=== PATIENT | male | born 1960 | race Caucasian/White ===

== ENCOUNTER 2021-01-21 21:38 | Emergency (ER) | payer MEDICARE, MEDICAID ==
[~2021-01-21] VITALS: Ht 193 cm; Wt 90.9 kg
[2021-01-21 21:40] VITALS: BP 184/134
[2021-01-21] MEDS ORDERED: DOXYCYCLINE 100MG CAPSULE PO STA (22:26)
[2021-01-21] MEDS ORDERED: cephalexin 250mg capsule PO ONE (22:30)
[2021-01-21] MEDS ORDERED: TETanus/Pertussis (Acell)/Diphther VAC/PF (Tdap-Adult) 0.5ml syringe IMVAC ONE (22:30)
[2021-01-21] MEDS ORDERED: LIDOcaine 1% W/epiNEPHrine 1:200,000 10ml vial IJ ONE (22:30)
--- NOTE | 2021-01-21 22:55 | NUR ---
PA at bedside to do I/D of left hand.
[2021-01-21] MEDS ORDERED: CEPH-585 PO (23:21)
[2021-01-21] MEDS ORDERED: HYDR-3965 PO (23:21)
[2021-01-21] MEDS ORDERED: MUPI22OI30 TOP (23:21)
[2021-01-21] MEDS ORDERED: DOXY100C2 PO (23:21)
--- NOTE | 2021-01-21 23:33 | NUR ---
PTS WOND CLEANED AND DRESSED BY [email or web address]SIVAIS. PT IS PREPARED FOR DC.
== END 2021-01-21 23:48 | disposition home or self-care (01) ==
LOC: ER 21:39
DX: L03.012 Cellulitis of left finger (principal); Z20.3 Contact with and (suspected) exposure to rabies
CPT/HCPCS: 10060; 20610; 90471; 90715; 99283